=== PATIENT | male | born 1940 | race African-American/Black ===

== ENCOUNTER 2018-02-03 10:57 | Emergency (ER) | payer MEDICARE, MEDICAID ==
[~2018-02-03] VITALS: Ht 180.3 cm; Wt 78.0 kg
[2018-02-03 13:41] LABS: HEMATOCRIT 39.4 % (42.0-52.0); HEMOGLOBIN 13.1 g/dL (14.0-18.0); MEAN CORPUSCULAR HEMOGLOBIN 30.6 pg (28.0-32.0); MEAN CORPUSCULAR VOLUME 92.4 fL (80.0-94.0); PLATELET 164 x1000/uL (130-400); RED BLOOD CELL COUNT 4.27 mill/uL (4.7-6.1); RED CELL DISTRIBUTION WIDTH 13.3 % (11.6-14.6)
[2018-02-03 14:02] LABS: CHLORIDE 106 mEq/L (98-107)
[2018-02-03 14:15] VITALS: BP 115/76
== END 2018-02-03 16:07 | disposition home or self-care (01) ==
LOC: ER 10:57
DX: L01.03 Bullous impetigo (principal); I10 Essential (primary) hypertension; K21.9 Gastro-esophageal reflux disease without esophagitis; J44.9 Chronic obstructive pulmonary disease, unspecified; D64.9 Anemia, unspecified; Z86.018 Personal history of other benign neoplasm
CPT/HCPCS: 36415; 80048; 85027; 99284